=== PATIENT | male | born 1965 | race Caucasian/White ===

== ENCOUNTER 2022-04-28 11:16 | Emergency (ER) | payer OTHER ==
[~2022-04-28] VITALS: Ht 193 cm; Wt 85.7 kg
[2022-04-28 11:33] VITALS: BP 137/104
[2022-04-28] MEDS ORDERED: IBUPROFEN 600 MG TAB PO ONE (12:10)
--- NOTE | 2022-04-28 13:14 | NUR ---
56 y/o male bib self with c/o right big toe from s/p fall. Per patient he was walking and tripped over a battery. Patient is noted with blood to right big toe. Patient has feeling and movement to toe.
--- NOTE | 2022-04-28 14:00 | NUR ---
patients toe irrigated tolerated well.
[2022-04-28] MEDS ORDERED: IBUP-2213 PO (14:24)
[2022-04-28] MEDS ORDERED: ACET-8386 PO (14:24)
[2022-04-28] MEDS ORDERED: CEPH500C16 PO (14:24)
--- NOTE | 2022-04-28 15:07 | NUR ---
Patient discharged with v/s stable. Written and verbal after care instructions given. Patient alert, oriented and verbalized understanding of instructions. Ambulatory with steady gait. All questions addressed prior to discharge. ID band removed. Patient advised to follow up with PMD. Rx of Keflex, ibuprofen, and hydrocodone-acetaminophen given. Opportunity to ask questions provided and answered.
--- NOTE | 2022-04-28 15:08 | NUR ---
The patient's care was reviewed and supervised by Maranda Sawyer RN.
[2022-04-28 15:11] VITALS: BP 150/88
== END 2022-04-28 15:11 | disposition home or self-care (01) ==
LOC: MED 11:16
DX: S92.421A Displaced fracture of distal phalanx of right great toe, initial encounter for closed fracture (principal); S91.201A Unspecified open wound of right great toe with damage to nail, initial encounter; I11.0 Hypertensive heart disease with heart failure; I50.9 Heart failure, unspecified; Z79.891 Long term (current) use of opiate analgesic; Z79.2 Long term (current) use of antibiotics; Z79.1 Long term (current) use of non-steroidal anti-inflammatories (NSAID); W22.8XXA Striking against or struck by other objects, initial encounter; Y93.89 Activity, other specified; Y92.89 Other specified places as the place of occurrence of the external cause; Y99.8 Other external cause status
CPT/HCPCS: 73660; 99283

== ENCOUNTER 2022-09-03 01:09 | Emergency (ER) | payer OTHER ==
[~2022-09-03] VITALS: Ht 193 cm; Wt 83.9 kg
[~2022-09-03 01:09] MED LIST: ACET-8386 PO; FURO-570 PO; IBUP-2213 PO; LOSA100T1 PO
[2022-09-03 01:21] VITALS: BP 127/97
--- NOTE | 2022-09-03 01:34 | NUR ---
Patient taken to X-ray via WC.
--- NOTE | 2022-09-03 02:35 | NUR ---
Patient taken to bed 11.
--- NOTE | 2022-09-03 02:38 | NUR ---
Dr. Melendez examining patient.
[2022-09-03] MEDS ORDERED: IBUP-1842 PO (02:52)
[2022-09-03 03:01] VITALS: BP 135/95
--- NOTE | 2022-09-03 03:01 | NUR ---
Patient discharged with v/s stable. Written and verbal after care instructions given and explained for Nail bed injury. Patient alert, oriented and verbalized understanding of instructions. Ambulatory with steady gait. All questions addressed prior to discharge. ID band removed. Patient advised to follow up with PMD. Rx of Ibuprofen given. Patient educated on indication of medication including possible reaction and side effects. Opportunity to ask questions provided and answered.
== END 2022-09-03 03:01 | disposition home or self-care (01) ==
LOC: MED 01:09
DX: S90.121A Contusion of right lesser toe(s) without damage to nail, initial encounter (principal); I10 Essential (primary) hypertension; I25.10 Atherosclerotic heart disease of native coronary artery without angina pectoris; Z79.899 Other long term (current) drug therapy; X58.XXXA Exposure to other specified factors, initial encounter; Y93.89 Activity, other specified; Y92.89 Other specified places as the place of occurrence of the external cause; Y99.8 Other external cause status
CPT/HCPCS: 73660; 99283; Q0092